=== PATIENT | male | born 1970 | race Caucasian/White ===

== ENCOUNTER 2017-10-26 07:57 | Observation (INO) ==
[2017-10-26] MEDS ORDERED: 0.9 % Sodium Chloride 1,000 ML IVC SCH (08:15)
[2017-10-26] MEDS ORDERED: Verapamil 5 MG/2 ML VIAL ONE (08:57)
[2017-10-26] MEDS ORDERED: 0.9 % Sodium Chloride 1,000 ML ONE (08:58)
[2017-10-26] MEDS ORDERED: ISOVUE-370 200 ML INFUS..BTL IV ONE ×2 (08:58→09:52)
[2017-10-26] MEDS ORDERED: Heparin 1,000 UNITS/500 mL 500 ML ONE ×2 (08:58→09:51)
[2017-10-26] MEDS ORDERED: *HR* Heparin 10,000 UNIT/10 ML VIAL ONE ×2 (08:58→09:52)
[2017-10-26] MEDS ORDERED: Nitroglycerin 1,000 MCG/10 ML VIAL IV ONE (08:59)
--- NOTE | 2017-10-26 09:02 | History & Physical Report ---
Date of Encounter: 10/26/17 Time of Encounter: 09:00 24 Hour HP Update - Instructions Instructions: If the History and Physical is less than 30 days old and was completed prior to A.M. admission and or procedure and has NOT been updated on calendar day of procedure please complete this update prior to performing procedure. - Update Patient reports changes in Medical Condition: No Changes in examination, assessment, or condition: No Changes in Medication: No Preop tests/diagnostics Reviewed: Yes Surgery Remains Indicated: Yes Consent for Planned Operative Procedure(s) Verified: Yes - Pre-Operative Checklist Preoperative Checklist Indicated: No Prophylactic Antibiotic Ordered: No Home Medications Include Beta Yury: Yes Beta Yury Taken Today (Day of Surgery): Yes Beta Yury Taken Yesterday (Day Prior to Surgery): Yes Is VTE Prophylaxis Indicated?: NO
--- NOTE | 2017-10-26 09:03 | Pre-Sedation Evaluation ---
Pre-sedation evaluation - Pre-sedation checklist Date of procedure: 10/26/17 Procedure: [facility] Recent Vitals: Last Vital Signs Temp 97.9 F 10/26/17 08:42 Pulse 92 10/26/17 08:42 Resp 18 10/26/17 08:42 BP 144/90 10/26/17 08:42 Pulse Ox 93 10/26/17 08:42 H&P (including ROS) documented in medical record: Yes Previous reaction to sedatives/anesthetics: No Dietary Status: NPO after Midnight Airway Assessment: Patient can open mouth completely, TMJ function normal, Micrognathia (under-bite, receding chin) absent, Neck with adequate range of motion Dentition: No loose teeth or bridges Possible difficult airway: Yes If Yes;: Morbid obesity ASA Classification *see protocol: CLASS II-Mild systemic disease Plan of Care: Pt appropriate candidate for procedure/moderate/conscious sedation , Risks/benefits of procedure/sedation discussed w/ patient/family
[2017-10-26] MEDS ORDERED: *HR* Midazolam HCl 2 MG/2 ML VIAL ONE (10:03)
[2017-10-26] MEDS ORDERED: *HR* FentaNYL (PF) 100 MCG/2 ML VIAL ONE (10:03)
--- NOTE | 2017-10-26 10:38 | Discharge Summary ---
Outpatient Proc Discharge Plan - Plan Additional Instructions: RISK FACTORS: STOP SMOKING: If you smoke, STOP. Smoking or tobacco use significantly increases your risk of heart disease because nicotine causes the arteries to narrow or constrict. It also causes fats to stick to the artery. Your chances of having a heart attack are greatly increased if you continue to smoke. For more information, call the education line for smoking cessation [id number]-[id number] EAT A LOW FAT/CHOLESTEROL/SODIUM DIET: This diet may help reduce your chances of having a heart attack. LIFTING: With affected extremity: Avoid bending, pushing off and lifting more than 2 pounds for 24 hours The following 48 hours, avoid lifting anything more than 5 pounds Avoid strenuous activity or repetitive motions ACTIVITY: You may walk or climb stairs as tolerated You can resume sexual activity as tolerated In general, you are encouraged to engage in a minimum of 30 minutes or more of moderate intensity physical activity, such as brisk walking, daily or at least 3 -4 times weekly BATHING Do not submerge the site into water (bath tub, hot tub, swimming pool, dishes) for 1 week. This can be a source for infection into the blood stream. You may shower after 24 hours SITE CARE: After 24 hours, you may remove the dressing and leave the site open to air. Keep the site clean and dry. Clean gently and pat dry. You can expect bruising and tenderness that gradually resolve within a week or two. Return to work as instructed per your physician Resume driving as instructed per physician Keep all scheduled follow up appointments Resume medications as instructed IMPORTANT: If prescribed a Platelet Aggregation Inhibitor such as, Plavix, Brilinta or Effient: Duration of therapy is minimum one year These medications are often used in combination with Aspirin in prevention of future heart attacks Never discontinue unless consult with your Label Folder STROKE (CVA) Risk factors for a stroke are: Age, cigarette smoking, diabetes, excessive alcohol consumption, family history, high blood pressure, overweight, physical inactivity, prior stroke, heart attack, diagnosis of carotid artery stenosis or other artery disease. Warning signs: Sudden numbness or weakness of the face, arm or leg; especially on one side of the body, sudden confusion, trouble speaking or understanding, sudden trouble seeing in one or both eyes, sudden trouble walking, dizziness, loss of balance or coordination, sudden severe headache with no cause. Call 911 or go to the Emergency Room. CONGESTIVE HEART FAILURE: If you have been diagnosed with Congestive Heart Failure (CHF) and your symptoms return, make an appointment with your physician Weigh yourself daily. Notify your physician if you have a weight gain of two or more pounds in one day or five or more pounds in one week. If you experience any difficulty breathing, please call 911 BLEEDING: Although the risk of bleeding is minimal, it can happen. If you have any bleeding from the site, apply firm pressure above the puncture site for 10-15 minutes. If the bleeding does not stop, continue manual pressure and call 911 Contact [facility] ( ) if: You develop a fever greater than 101 degrees Fahrenheit Your site becomes reddened or has any drainage You have an increase in pain or burning at the site or if a large knot forms at the site. If you experience chest pain, shortness of breath, dizziness, or extreme tiredness, stop the activity and rest. Please notify [facility] office if you experience any of these symptoms and they are not relieved by rest please call 911! Restart coumadin tonight at regular dose if no bleeding at catheterization site. Home Medications: EPINEPHrine [Auvi-Q] 0.3 mg IJ PRN PRN 03/07/17 [History] Finasteride [Proscar] 5 mg PO DAILY 03/07/17 [History] Levothyroxine [Synthroid] 137 mcg PO 0630 03/07/17 [History] Sertraline [Zoloft] 100 mg PO DAILY 03/07/17 [History] Tamsulosin [Flomax] 0.4 mg PO DAILY 03/07/17 [History] traZODone [TraZODone] 50 mg PO HS 03/07/17 [History] DiphenhydraMINE [Benadryl] 25 mg PO Q6HR #30 capsule 03/11/17 [Rx] Famotidine [Pepcid] 40 mg PO DAILY #30 tablet 03/11/17 [Rx] Aspirin [Lo-Dose Aspirin EC] 81 mg PO DAILY 10/26/17 [History] Cetirizine HCl [Zyrtec] 10 mg PO DAILY 10/26/17 [History] Etodolac [Etodolac ER] 400 mg PO DAILY 10/26/17 [History] Gabapentin [Gralise] 600 mg PO DAILY 10/26/17 [History] Lactobacillus [Culturelle] 1 each PO DAILY 10/26/17 [History] Lisinopril-HCTZ 20-12.5 [Prinzide 20-12.5] 1 each PO DAILY 10/26/17 [History] Potassium Chloride [Klor-Con 10] 10 meq PO DAILY 10/26/17 [History] Warfarin [Coumadin] 2.5 mg PO 1800 10/26/17 [History] hydroCHLOROthiazide [Hydrochlorothiazide] 25 mg PO DAILY 10/26/17 [History]
[2017-10-26] MEDS: Acetaminophen 325 MG TABLET PO PRN ×2 (11:38→21:41)
--- NOTE | 2017-10-26 15:37 | Invasive Diagnostic Lab Proc ---
Name: Germain Mays Date of Study: 10/26/2017 Date: 1970 Ht: 72.0in Medical Record#: [id number] Age: 47 Wt: 335.00lb Gender: Male BSA: 2.65 Order #: [id number] BMI: 45.43 Physicians Procedure Physician: Miriam Whitaker MD, [facility] Referring MD: [facility] Referring MD: Staff Name Position Time In Tarik Goodwin RN Pre-Op Nurse Sylvia William RN Pre-Op Nurse Jose R Yanez RN Pre-Op Nurse Hailee Man RN Monitor 09:57 AM Tarik Goodwin RN Insurance Agency Manager 09:57 AM Zacarias, Amie RT (R) Scrub 09:57 AM Pedro Pablo Castro RN Insurance Agency Manager 10:05 AM Indications Indication Abnormal Test - Stress Procedures Performed Procedure CORONARY ARTERY ANGIO S&I Pre-Procedure Checklist Informed consent is complete signed and on chart. H&P is on chart. ID band is on and ID verified with patient. Patient NPO for procedure The procedure was described for the patient and questions were answered. Blood Pressure: 144/90 ECG is on chart. Rhythm: NSR Plan of Care Patient will tolerate the procedure without complications. Adequate level of comfort will be maintained. Hemodynamics will remain stable Patient will recover from procedure without complications. Respiratory function will be maintained. Cardiac rhythm will remain stable. Patient temperature will be maintained. Patient and/or family have verbalized understanding of the procedure. Patient Education Chief Complaint/Reason for Test: Cardiac Cath Developmental Category: Adult (18-64 years) Developmentally Appropriate for Age: Yes Learning Barriers: None Education Needs: Procedure Education Method: Verbal Information Taught: Cardiac Cath Educational Evaluation: Able to repeat information Intravenous Access Time IV Size Location DC'd Fluid/Drip Rate Units RN 08:44 AM 20g 1 1/4" Patent On Arrival Lt Antecubital 0.9NaCl 50 ml/hr Jose R Yanez RN Allergies silver sulfadiazine codeine hydrocodone Oxycodone naproxen celecoxib [place] bees narcotics Vital Signs Time BP (mmHg) HR (bpm) O2 Sat. RR (bpm) LOC 08:44 AM 144 / 90 92 93 % 18 5 = Fully awake and oriented or at pre-proc level 10:01 AM / % 5 = Fully awake and oriented or at pre-proc level 10:01 AM / % 4 = Oriented but drowsy 10:16 AM / % 4 = Oriented but drowsy 10:06 AM 176 / 108 88 98 % 29 10:11 AM 167 / 103 87 91 % 16 10:16 AM 161 / 90 95 96 % 19 10:21 AM 164 / 104 85 92 % 20 10:26 AM 155 / 86 105 90 % 19 10:31 AM 152 / 97 102 92 % 26 10:41 AM 135 / 72 91 92 % 23 4 = Oriented but drowsy 10:55 AM 125 / 83 86 95 % 18 5 = Fully awake and oriented or at pre-proc level 11:15 AM 113 / 79 87 93 % 16 5 = Fully awake and oriented or at pre-proc level 11:30 AM 107 / 85 92 95 % 18 5 = Fully awake and oriented or at pre-proc level 11:45 AM 126 / 89 80 93 % 18 5 = Fully awake and oriented or at pre-proc level 12:00 PM 117 / 79 80 94 % 16 5 = Fully awake and oriented or at pre-proc level 12:15 PM 141 / 59 92 100 % 16 5 = Fully awake and oriented or at pre-proc level 12:30 PM 133 / 87 90 99 % 16 5 = Fully awake and oriented or at pre-proc level 01:00 PM 127 / 89 90 99 % 16 5 = Fully awake and oriented or at pre-proc level Procedural Medications Time Medication Dose Units Method Given By 10:01 AM Oxygen 2 L/min nasal cannula Tarik Goodwin RN 10:06 AM Versed 2 mg Intravenous Pedro Pablo Castro RN 10:06 AM Fentanyl 50 mcg Intravenous Pedro Pablo Castro RN 10:14 AM Lidocaine 2% 0.5 ml Subcutaneous Miriam Whitaker MD, FACC 10:24 AM Heparin 4000 units Nitroglycerin 200 mcg Verapamil 2.5 mg Intraarterial Miriam Whitaker MD, FACC 11:35 AM Tylenol 650 mg Orally Jose R Yanez RN ASA Classification: CLASS II- Mild systemic disease (i.e. well-controlled diabetes, hypertension, asthma, cigarette smoking) Odilon Score Preprocedure Postprocedure Activity 2- Moves 4 extremities sustained head lift Activity 2- Moves 4 extremities sustained head lift Circulation 2- SBP +/= 20 points of pre-anesthetic level Circulation 2- SBP +/= 20 points of pre-anesthetic level Consciousness 2- Awake and alert oriented x 3 Consciousness 2- Awake and alert oriented x 3 O2 Saturation 2- Able to maintain O2 satruation of 92% on room air O2 Saturation 2- Able to maintain O2 satruation of 92% on room air Respiratory 2- Able to deep breathe and cough well Respiratory 2- Able to deep breathe and cough well Total Score 10 Total Score 10 Contrast Agent: Isovue Diagnostic Contrast: 49 ml Total Contrast: 49 ml Fluoro Dose: 387 mGy Procedure Log Time Note Enter By 08:46 AM Risk for fall? No [facility] 08:46 AM Evidence of mental, physical, or emotional abuse? No [facility] 08:46 AM Does patient have suicidal ideations? No [facility] 09:57 AM Pt arrived to mushroom laborer 2 at 09:56 [facility] 09:57 AM Hailee Man RN Position: Monitor Time in: 09:57 [facility] 09:57 AM Tarik Goodwin RN Position: Insurance Agency Manager Time in: 09:57 [facility] 09:57 AM Amie Adames RT (R) Position: Scrub Time in: 09:57 [facility] 09:57 AM Patient charges- Angio tray pack, Navilyst 3mm J, Pulse Oximetry and ACIST tubing and transducer [facility] 09:57 AM IV Supplies used: J loop Angio Cath. [facility] 09:58 AM Case Delayed No [facility] 09:58 AM Physician arrived 09:58 [facility] 09:59 AM Bud and julius completed scoates 09:59 AM Sign in performed according to hospital policy. scoates 10:00 AM Procedure start 10:00 scoates 10:00 AM CathStat 10:01 AM Time: 10:01 Patient comfortable and pain free: Yes [facility] 10[facility] AM Time: 10:01LOC: 5 = Fully awake and oriented or at pre-proc level [facility] 10:01 AM Time: 10:01 Oxygen on at 2 L/min per nasal cannula by Tarik Goodwin RN [facility] 10:03 AM ASA Class CLASS II- Mild systemic disease (i.e. well-controlled diabetes, hypertension, asthma, cigarette smoking) [facility] 10:05 AM Vitals capture started with the following parameters, Patient=Adult, Interval=5 min, Initial Welwmkyt=588 mmHg, Deflation Rate=5 mmHg, Cuff placed on Right Arm 10:05 AM Pedro Pablo Castro RN Position: Insurance Agency Manager [facility]: 10:05 [facility] 10: AM Time: : Versed 2 mg Intravenous Given by Pedro Pablo Castro RN [facility] 10: AM Time: 10: Fentanyl 50 mcg Intravenous Given by Pedro Pablo Castro RN [facility] 10:06 AM HR=88 bpm, PADF=313/108 mmhg, SpO2=98.0 %, Resp=29 B/min, Comment=nsr 10: AM Clinical Presentation: Unstable angina jcallihan 10:10 AM Hair removed from procedure site in holding area using clippers. Left groin prepped with Chloraprep by Hailee Man RN, then patient was draped. Skin intact. scoates 10:11 AM HR=87 bpm, EYZV=020/103 mmhg, SpO2=91.0 %, Resp=16 B/min, Comment=nsr 10:14 AM Time out performed according to hospital policy scoates 10:16 AM HR=95 bpm, TOHR=463/90 mmhg, SpO2=96.0 %, Resp=19 B/min, Comment=nsr 10:16 AM Time: 10:14 0.5 ml Lidocaine 2% to left radial Subcutaneous Given by Miriam Whitaker MD, [facility] scoates 10:16 AM Time: 10:01LOC: 4 = Oriented but drowsy scoates 10:16 AM Time: 10:01 Patient comfortable and pain free: Yes scoates 10:21 AM Access obtained by percutaneous puncture. 6Fr 10cm Terumo Glidesheath sheath placed in left Radial artery. [id number] scoates 10:21 AM HR=85 bpm, MSJH=753/104 mmhg, SpO2=92.0 %, Resp=20 B/min, Comment=nsr 10:23 AM Pressure channel 1 zeroed. 10:24 AM Time: 10:24 Patient given 4,000 units Heparin, 200 mcg Nitroglycerin, and 2.5 mg Verapamil Intraarterial by Miriam Whitaker MD, [facility]. This is given to reduce risk of vessel spasm and thrombosis. scoates 10:24 AM 5Fr FR 4 catheter inserted over the wire DNC scoates 10:24 AM Recorded Pressure: Ao, FI=940, Condition=Condition 1 (Aorta) Ao 167/142/155 10:24 AM RCA angiography performed in multiple views. scoates 10:26 AM Catheter removed scoates 10:26 AM ER=592 bpm, QVAY=246/86 mmhg, SpO2=90.0 %, Resp=19 B/min, Comment=nsr 10:27 AM 5Fr FL 4 catheter inserted over the wire DNC scoates 10:28 AM LCA angiography performed in multiple views. scoates 10:29 AM Catheter removed scoates 10:31 AM SI=467 bpm, EESY=549/97 mmhg, SpO2=92.0 %, Resp=26 B/min 10:31 AM Procedure completed at 10:30 scoates 10:31 AM Did you address MARGUERITE flow and Dominance? Yes scoates 10:31 AM Coronary Dominance: Left scoates 10:31 AM Time: 10:16 Patient comfortable and pain free: Yes scoates 10:31 AM Time: 10:16LOC: 4 = Oriented but drowsy scoates 10:31 AM Arterial sheath pulled, Vasc Band closure device used and was Successful S/N. scoates 10:32 AM 13 ml air in Vasc Band. scoates 10:33 AM Post ECG Sinus Tachycardia scoates 10:33 AM Post Blood Pressure 152/97 scoates 10:33 AM 10:33 Post Pulses Lt Radial 1+ scoates 10:34 AM Information taught Cardiac Cath and Vasc Band scoates 10:34 AM Education needs Procedure, Plan of Care, and Responsibilities of Patient in Care scoates 10:34 AM Learning barriers :None scoates 10:34 AM Education Methods Verbal scoates 10:34 AM Education evaluation Able to repeat information scoates 10:34 AM Site status No bleeding/hematoma - Lt Wrist as reported by Sites, Amie RT (R) at 10:34 scoates 10:35 AM Report given to Sushma DE GUZMAN Pt taken to Holding room Room #2. 10:34 scoates 10:35 AM Plavix, Effient or Brilinta given No scoates 10:35 AM Delay to floor No scoates 10:35 AM Patient out of room: 10:35 scoates 10:36 AM Family placed in no family here at this time. scoates 10:36 AM Complications: None scoates 10:36 AM Fluoro Time: 2.5 scoates 10:36 AM Sign out completed: Radiation Dose 387 mGy Fluoro Time: 2.5 Isovue 370 - 200ml contrast 49 ml given by Miriam Whitaker MD, [facility]. Complications: NoneCardiac Rehab Consult needed: NoConfirmed administered medications: Yes scoates 10:38 AM Isovue 370 - 200ml contrast 49 ml given by Miriam Whitaker MD. scoates 11:[address] Whitaker notified of patient's c/o left wrist pain. New order received. kwitte 11:35 AM Time: 11:35 Tylenol 650 mg Orally Given by Jose R Yanez RN kwadriana 12:55 PM Activity: 2 Circulation: 2 Consciousness: 2 O2 Saturation: 2 Respiration: 2 mprater 12:55 PM Patient ambulated with assistance. Insertion site without bleeding or hematoma. Pulses unchanged. mprater 01:00 PM [facility] concerning [facility] mprater 02:30 PM Spoke with [facility] earlier. Patients records faxed to [place], Still waiting on [facility] approval for transfer mprater 03:00 PM Geena Beck from the [facility] returned call. The pateint was approved to be transfered but they have no beds available. Dr.Debra Alfred asset coordinator recomends patient stay over night [facility] and [facility]. Discussed with Dr Kimberley Whitaker and Steven Lawson. mprater 03:05 PM Discharge instructions were reviewed with patient and patient verbalized understanding. Copy given to patient. mprater 03:18 PM Report called [address] [facility] on 3NE mprater 03:28 PM Patient transferred to [address] [place] [address] Complications Complication None None Hemodynamics Pressures Site Systolic/A Wave Diastolic/V Wave Mean AO 167 142 155 Post Procedure Information Blood Pressure: 152/97 mmHg Rhythm: Sinus Tachycardia Post procedural instructions were given Closure Device Time Device Success/Fail 10/26/2017 10:38:00 AM Mechanical Compression Successful Site Checks Time Location Status Staff Sheath In? Note 10:34 AM Lt Wrist No bleeding/hematoma Sites, Amie RT (R) 10:55 AM Lt Wrist No bleeding/ No Hematoma Jose R Yanez RN Vasc band in place 11:15 AM Lt Wrist No bleeding/ No Hematoma Jose R Yanez RN 2 ml air deflated 11:30 AM Lt Wrist No bleeding/ No Hematoma Jose R Yanez RN 2 ml air deflated. 11:45 AM Lt Wrist No bleeding/ No Hematoma Melanie Blanco RN 2 ml of air removed 12:00 PM Lt Wrist No bleeding/ No Hematoma Melanie Blanco RN 2ml of air removed 12:15 PM Lt Wrist No bleeding/ No Hematoma Sushma William RN 2cc air deflated 12:30 PM Lt Wrist No bleeding/ No Hematoma Sushma William RN remaining air deflated 12:50 PM Lt Wrist No bleeding/ No Hematoma Sushma William RN band removed, site cleansed and dressing apple 01:30 PM Lt Wrist No bleeding/ No Hematoma Sushma William RN 02:00 PM Lt Wrist No bleeding/ No Hematoma Sushma William RN 03:00 PM Lt Wrist No bleeding/ No Hematoma Sushma William RN Pulses Time Site Pre-Procedure Post-Procedure Note 10/26/2017 8:45:00 AM Bilateral DP & PT 2+ 10/26/2017 8:46:00 AM Bilateral radial 2+ 10:33:00 AM Lt Radial 1+ 10/26/2017 11:00:00 AM Lt Radial 1+ 10/26/2017 11:15:00 AM Lt Radial 1+ 10/26/2017 11:45:00 AM Lt Radial 1+ 10/26/2017 12:00:00 PM Lt Radial 1+ 10/26/2017 12:30:00 PM Lt Radial 1+ 10/26/2017 3:00:00 PM Lt Radial 2+ Updated by Sushma William RN on 10/26/2017 3:30:12 PM Sushma William RN electronically signed on 10/26/2017 3:30:43 PM with status of Final
[2017-10-26] MEDS ORDERED: Naloxone 0.4 MG/ML INJ IVP PRN (15:54)
--- NOTE | 2017-10-26 16:07 | Event Note ---
Date of Encounter: 10/26/17 Time of Encounter: 16:03 - Cardiology Event Note Patient presented for elective out-pt LHC today. No intervention required on LHC. No complication from procedure. Plans for patient to be transferred back to [place] was arranged prior to procedure. Unfortunately, [facility] does not have any beds available. [facility] approved overnight stay for patient here instead of d/c home. Concern for patient inability to monitor self after sedation and procedure with no help at home. Discussed with Sushma William lab rep RN who spoke with [place] Татьяна Alfred. Plan for d/c home in am.
[2017-10-26 16:58] LABS: BUN/Creatinine Ratio 19 (6-26); Blood Urea Nitrogen 17 mg/dL (6-20); Calcium 9.4 mg/dL (8.6-10.3); Carbon Dioxide 27 mEq/L (23-29); Chloride 105 mEq/L (98-107); Glucose 93 mg/dL (70-105); Osmolality,Calculated 291 (280-300); Potassium 3.8 mEq/L (3.5-5.1); Sodium 140 mEq/L (136-145); eGFR For African Americans > 60 (> 60); eGFR For Non-African Americans > 60 (> 60)
[2017-10-26] MEDS: *HR* Heparin 5,000 UNIT/ML VIAL SQ SCH (18:10)
[2017-10-27] MEDS: *HR* Heparin 5,000 UNIT/ML VIAL SQ SCH (06:40)
--- NOTE | 2017-10-27 10:47 | Discharge Summary ---
- NOTES TO OUTPATIENT PROVIDER Notes to Outpatient Provider: F/u with [facility]. Date of Encounter: 10/27/17 Time of Encounter: 10:45 - Discharge Diagnosis (1) S/P left heart catheterization by percutaneous approach Priority: Primary Status: Acute (2) Atrial fibrillation Priority: Secondary Status: Chronic Qualifiers: Atrial fibrillation type: paroxysmal Qualified Code(s): I48.0 - Paroxysmal atrial fibrillation - Hospital Course Hospital course: Mr. Mays is a 47 year old male with a history of PAF on coumadin, HTN, and castro's esophagus who presented for an elective LHC for abnormal stress test. LHC completed 10/26/17 showed no obstructing lesions. No intervention needed. There was no complication. He stayed [facility]. He does not have family at home to help him. There was no issues overnight. He was started back on his coumadin. No medication changes. [facility]. - Time Spent with Patient Total time spent providing and/or coordinating discharge services: Greater than 30 minutes (45 min) - Discharge Medications Home Medications: Finasteride [Proscar] 5 mg PO DAILY 03/07/17 [History] Levothyroxine [Synthroid] 137 mcg PO 0630 03/07/17 [History] Sertraline [Zoloft] 100 mg PO DAILY 03/07/17 [History] Tamsulosin [Flomax] 0.4 mg PO DAILY 03/07/17 [History] traZODone [TraZODone] 50 mg PO HS 03/07/17 [History] Famotidine [Pepcid] 40 mg PO DAILY #30 tablet 03/11/17 [Rx] Aspirin [Lo-Dose Aspirin EC] 81 mg PO DAILY 10/26/17 [History] Cetirizine HCl [Zyrtec] 10 mg PO DAILY 10/26/17 [History] Etodolac [Etodolac ER] 400 mg PO DAILY 10/26/17 [History] Lactobacillus [Culturelle] 1 each PO DAILY 10/26/17 [History] Potassium Chloride [Klor-Con 10] 10 meq PO DAILY 10/26/17 [History] Warfarin [Coumadin] 2.5 mg PO 1800 10/26/17 [History] Lisinopril/Hydrochlorothiazide [Zestoretic 20-25 mg Tablet] 1 tab PO DAILY 10/27 [History] Allergies/Adverse Reactions: 3 Allergy/AdvReac Type Severity Reaction Status Date / Time celecoxib Allergy Anaphylaxis Verified 03/11/17 13:41 codeine Allergy Anaphylaxis Verified 03/11/17 13:41 hydrocodone Allergy Anaphylaxis Verified 03/11/17 13:41 naproxen Allergy Anaphylaxis Verified 03/11/17 13:41 Oxycodone Allergy Anaphylaxis Verified 03/11/17 13:41 silver sulfadiazine Allergy Itching Verified 03/11/17 17:10 Tolstoy Allergy Anaphylaxis Verified 03/11/17 13:41 Tomato Allergy Anaphylaxis Verified 03/11/17 13:41 bees Allergy Anaphylaxis Uncoded 03/11/17 13:41 narcotics Allergy Anaphylaxis Uncoded 03/11/17 13:41 Date of admission: 10/26/17 15:56 Primary care physician: [facility] Consults: None Discharging clinician: Steven Lawson Anticipated date of discharge: 10/27/17 Physical Examination Vital Signs, Last 4 Hours Temp Pulse Resp BP Pulse Ox 10/27/17 07:03 98.0 F 85 17 126/82 93 General: Conversant, No Apparent Distress HEENT: Atraumatic, Normocephaly, Mucus Membranes Moist Cardiac: Reg Rate and Rhythm, Normal S1 and S2, No Murmur Lungs: Normal Breath Sounds, No Wheeze, Rales, Rhonchi Abdomen: Soft, Non-Tender Skin: No rashes noted on visualized skin Extremities: No Clubbing, No Cyanosis, No Edema, Normal Pulses - Patient Status Disposition: Home, Self-Care Condition: Fair Overall status at discharge: patient is back to baseline - Discharge Instructions Follow Up With: Ирина Santiago MANAGER OUTPATIENT [Advanced Practice Nurse] - 11/18/17 1:00 pm [facility],PCP [Primary Care Provider] - (Please schedule with [facility] wednesday. ) Additional Instructions: RISK FACTORS: STOP SMOKING: If you smoke, STOP. Smoking or tobacco use significantly increases your risk of heart disease because nicotine causes the arteries to narrow or constrict. It also causes fats to stick to the artery. Your chances of having a heart attack are greatly increased if you continue to smoke. For more information, call the education line for smoking cessation 0-340-CJXWJNU EAT A LOW FAT/CHOLESTEROL/SODIUM DIET: This diet may help reduce your chances of having a heart attack. LIFTING: With affected extremity: Avoid bending, pushing off and lifting more than 2 pounds for 24 hours The following 48 hours, avoid lifting anything more than 5 pounds Avoid strenuous activity or repetitive motions ACTIVITY: You may walk or climb stairs as tolerated You can resume sexual activity as tolerated In general, you are encouraged to engage in a minimum of 30 minutes or more of moderate intensity physical activity, such as brisk walking, daily or at least 3 -4 times weekly BATHING Do not submerge the site into water (bath tub, hot tub, swimming pool, dishes) for 1 week. This can be a source for infection into the blood stream. You may shower after 24 hours SITE CARE: After 24 hours, you may remove the dressing and leave the site open to air. Keep the site clean and dry. Clean gently and pat dry. You can expect bruising and tenderness that gradually resolve within a week or two. Return to work as instructed per your physician Resume driving as instructed per physician Keep all scheduled follow up appointments Resume medications as instructed IMPORTANT: If prescribed a Platelet Aggregation Inhibitor such as, Plavix, Brilinta or Effient: Duration of therapy is minimum one year These medications are often used in combination with Aspirin in prevention of future heart attacks Never discontinue unless consult with your [employer] STROKE (CVA) Risk factors for a stroke are: Age, cigarette smoking, diabetes, excessive alcohol consumption, family history, high blood pressure, overweight, physical inactivity, prior stroke, heart attack, diagnosis of carotid artery stenosis or other artery disease. Warning signs: Sudden numbness or weakness of the face, arm or leg; especially on one side of the body, sudden confusion, trouble speaking or understanding, sudden trouble seeing in one or both eyes, sudden trouble walking, dizziness, loss of balance or coordination, sudden severe headache with no cause. Call 911 or go to the Emergency Room. CONGESTIVE HEART FAILURE: If you have been diagnosed with Congestive Heart Failure (CHF) and your symptoms return, make an appointment with your physician Weigh yourself daily. Notify your physician if you have a weight gain of two or more pounds in one day or five or more pounds in one week. If you experience any difficulty breathing, please call 911 BLEEDING: Although the risk of bleeding is minimal, it can happen. If you have any bleeding from the site, apply firm pressure above the puncture site for 10-15 minutes. If the bleeding does not stop, continue manual pressure and call 911 Contact [facility] ( ) if: You develop a fever greater than 101 degrees Fahrenheit Your site becomes reddened or has any drainage You have an increase in pain or burning at the site or if a large knot forms at the site. If you experience chest pain, shortness of breath, dizziness, or extreme tiredness, stop the activity and rest. Please notify [facility] office if you experience any of these symptoms and they are not relieved by rest please call 911! Restart coumadin tonight at regular dose if no bleeding at catheterization site. - Diet and Activity Diet: advance to your usual diet
[2017-10-27] MEDS ORDERED: *HR* Warfarin 2.5 MG TABLET PO ONE (10:49)
[2017-10-27] MEDS ORDERED: Levothyroxine 25 MCG TABLET PO SCH (10:55)
[2017-10-27] MEDS ORDERED: Aspirin Enteric Coated 81 MG Tablet PO SCH (11:00)
[2017-10-27] MEDS ORDERED: Finasteride 5 MG TABLET PO SCH (11:00)
[2017-10-27] MEDS ORDERED: ETODOLAC 400 MG PO SCH (11:00)
[2017-10-27] MEDS ORDERED: Loratadine 10 MG TABLET PO SCH (11:00)
[2017-10-27] MEDS ORDERED: Famotidine 20 MG TABLET PO SCH (11:00)
[2017-10-27] MEDS ORDERED: Lactobacillus 1 EACH CAP.SPRINK PO SCH (11:00)
[2017-10-27 11:03] VITALS: BP 128/84
[2017-10-27 11:57] LABS: INR 1.1; Prothrombin Time 11.7 Seconds (9.4-12.1)
[2017-10-27] MEDS ORDERED: traZODone 50 MG TABLET PO SCH (21:00)
== END 2017-10-27 13:40 | disposition home or self-care (01) ==
LOC: INVDIALAB 07:57 → 3NENU 07:57
PROVIDERS: ADMIT Internal Medicine Interventional Cardiology; ATTEND Internal Medicine Interventional Cardiology